=== PATIENT | male | born 1970 | race Caucasian/White ===

== ENCOUNTER 2020-08-09 06:37 | Emergency (ER) | payer OTHER ==
[2020-08-09] MEDS ORDERED: Ibuprofen 600 MG Tab PO ONE (07:20)
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
[2020-08-09 07:35] VITALS: PULSE 73
[2020-08-09 08:07] VITALS: BP 149/84
--- NOTE | 2020-08-09 08:29 | PCM.EKG ---
#1 Interpretation EKG Date: 08/09/20 Time: 06:56 Rhythm: NSR [place]: Normal P-Wave: Present QRS: Normal ST-T: Normal QT: Normal Comparison: NA - No Prior EKG
--- NOTE | 2020-08-10 09:25 | CR ---
Date of Service: 08/09/20 Clinical Data: pain AP CHEST: No priors. The patient has taken a poor inspiration. The heart size is within normal limits. The lungs are clear. No pneumothorax. No pleural effusion. No evidence of acute intrathoracic disease. [id number] [facility]
--- NOTE | 2020-08-10 09:28 | CR ---
Date of Service: 08/09/20 Clinical Data: pain, swelling RIGHT WRIST: No priors. There is an impacted, comminuted, displaced fracture through the distal radius, the proximal carpal row and distal fracture fragments are dislocated posteriorly with respect to the distal radius. No other acute abnormalities. IMPRESSION: Fracture dislocation right wrist. [id number] [facility]
== END 2020-08-09 09:30 ==
LOC: LB.ED 06:37
DX: S52.591A Other fractures of lower end of right radius, initial encounter for closed fracture (principal); S80.211A Abrasion, right knee, initial encounter; R07.9 Chest pain, unspecified; J45.909 Unspecified asthma, uncomplicated; Z79.899 Other long term (current) drug therapy; V89.2XXA Person injured in unspecified motor-vehicle accident, traffic, initial encounter; Y92.410 Unspecified street and highway as the place of occurrence of the external cause
CPT/HCPCS: 71045; 73110-RT; 93005; 99284; 99285-25; A9270-GY